=== PATIENT | male | born 1955 | race African-American/Black ===

== ENCOUNTER 2017-03-06 22:13 | Emergency (ER) | payer OTHER, BC ==
[~2017-03-06] VITALS: Ht 185.4 cm; Wt 83.9 kg
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
[2017-03-07 01:17] LABS: POTASSIUM ISTAT 3.9 mmol/L (3.5-5.0)
[2017-03-07 01:30] VITALS: BP 144/67
[2017-03-07] MEDS ORDERED: IOHEXOL 350 MG/ML 100 ML VIAL. ONE (01:49)
[2017-03-07] MEDS ORDERED: IOHEXOL 350 MG/ML 100 ML VIAL. IV ONE (02:00)
--- NOTE | 2017-03-07 02:26 | RAD ---
PROCEDURE CTA neck with and without contrast 03/07/2017. HISTORY Neck pain. Prior cervical spine CT suggested a left transverse process fracture of C3. TECHNIQUE Helical thin-section CT images were performed through the neck using an infusion of 75 milliliters Omnipaque 350. Multiplanar and 3D reformations were performed. Exposure: One or more of the following individualized dose reduction techniques were utilized for this exam: 1. Automated exposure control. 2. Adjustment of the mA and/or kV according to patient size. 3. Use of iterative reconstruction technique. Carotid stenoses were created per NASCET criteria. COMPARISON CT cervical spine of the previous evening. FINDINGS The left common carotid artery apparently arises from the base of the brachiocephalic artery. There is otherwise the standard branching pattern of the great vessels. There is mild plaque of the common carotid arteries. No significant narrowing is seen. Mild calcified plaque is shown at the carotid bulbs, but there is no evidence of a significant stenosis. The internal carotid arteries show no significant abnormality extending to the skull base. There is probably mild atherosclerotic narrowing of the right ICA as it extends past the sella. Both vertebral arteries are patent. They are similar in caliber. They show no apparent narrowing or luminal irregularity extending to their basilar confluence. The visualized subclavian arteries appear normal. Although this study was not performed to evaluate other structures, no soft tissue mass or adenopathy is seen in the neck. The airway appears normal. The salivary glands and thyroid show no abnormality. IMPRESSION Mild atherosclerosis. No acute abnormality is seen involving the arterial vessels of the neck. Electronically signed by: Kenny Cesar (Mar 07, 2017 02:24:50)
[2017-03-07] MEDS ORDERED: CYCL10TA2 PO (02:47)
--- NOTE | 2017-03-07 08:28 | RAD ---
Three-view study of the left hand Clinical indications: Left thumb pain. Findings: No acute fracture or dislocation or osteolytic process is seen. There is mild primary degenerative osteoarthritis of the first carpal metacarpal joint and the scaphoid trapezium joint. Degenerative cyst of the distal pole of the scaphoid bone is seen. IMPRESSION: Mild primary degenerative osteoarthritis.
== END 2017-03-07 03:02 | disposition home or self-care (01) ==
LOC: ER 22:13
DX: S12.201A Unspecified nondisplaced fracture of third cervical vertebra, initial encounter for closed fracture (principal); M79.642 Pain in left hand; R22.32 Localized swelling, mass and lump, left upper limb; E11.9 Type 2 diabetes mellitus without complications; Z88.0 Allergy status to penicillin; Z88.5 Allergy status to narcotic agent; V43.52XA Car driver injured in collision with other type car in traffic accident, initial encounter; Y92.413 State road as the place of occurrence of the external cause; Y93.89 Activity, other specified; Y99.8 Other external cause status
CPT/HCPCS: 70496; 70498; 72125; 73130; 80047; 99284; Q9967